=== PATIENT | male | born 1975 | race Caucasian/White ===

== ENCOUNTER 2020-05-08 10:58 | Inpatient (IN) | payer MEDICAID, OTHER ==
[~2020-05-08] VITALS: Ht 190.5 cm; Wt 211.9 kg
[2020-05-08 12:22] LABS: Urine Bacteria NONE SEEN /hpf (None Seen); Urine Blood Negative /uL (Negative); Urine Specific Gravity 1.013 (1.001-1.035); Urine WBC 2 /hpf (0 - 3)
[2020-05-08 12:35] LABS: Basophils # (auto) 0.1 10 ^3/uL (0-0.2); Basophils % (auto) 0.6 % (0.0-2.0); Eosinophils # (auto) 0.2 10 ^3/uL (0-0.8); Eosinophils % (auto) 1.5 % (0.0-7.0); Hemoglobin 17.1 g/dL (13.5-17.5); Lymphocytes % (auto) 9.4 % (10.0-50.0); Mean Corpuscular Hemoglobin 32.3 pg (28.0-32.0); Mean Corpuscular Hgb Conc. 34.1 g/dL (32.0-36.0); Mean Corpuscular Volume 94.7 fL (80.0-100.0); Monocytes # (auto) 0.8 10 ^3/uL (0-1.3); Monocytes % (auto) 8.2 % (0.0-12.0); Neutrophils # (auto) 8.3 10 ^3/uL (1.6-8.6); Neutrophils % (auto) 80.3 % (37.0-80.0); Nucleated Red Blood Cells % 0.1 %; Platelet Count (auto) 241 10^3/uL (140-450); Red Blood Cells 5.28 10^6/uL (4.5-5.90); Red Cell Distribution Width 13.4 % (11.8-14.3); White Blood Cell 10.3 10^3/uL (4.4-10.8)
[2020-05-08 12:49] LABS: Albumin 3.4 g/dL (3.4-5.0); Calcium 8.6 mg/dL (8.5-10.1); Magnesium 2.1 mg/dL (1.6-2.6); Potassium 3.9 mmol/L (3.5-5.1)
[2020-05-08 12:51] LABS: BUN/Creatinine Ratio 10.2
[2020-05-08 12:55] LABS: Bilirubin, Total 0.6 mg/dL (0.2-1.0); Total Protein 7.4 g/dL (6.4-8.2)
[2020-05-08 12:57] LABS: INR 1.04 (0.9-1.15); Partial Thromboplastin Time 28.2 sec (23.0-31.2)
[2020-05-08] MEDS ORDERED: NITROGLYCERIN 0.4 MG SL TAB SL PRN ×3 (14:00→15:30)
[2020-05-08] MEDS ORDERED: MORPHINE SULF INJ 2 MG/ML SYRINGE 1ML IV PRN ×3 (14:00→15:30)
[2020-05-08] MEDS ORDERED: ENOXAPARIN SOD 40 MG/0.4 ML SYRINGE SC ONE (14:30)
[2020-05-08] MEDS ORDERED: FUROSEMIDE 100 MG/10ML VIAL IV ONE (14:30)
[2020-05-08] MEDS ORDERED: CHOL20009 PO (15:19)
[2020-05-08] MEDS ORDERED: APPL188C PO (15:19)
[2020-05-08] MEDS ORDERED: MULT1TAB64 PO (15:19)
[2020-05-08] MEDS ORDERED: ATORVASTATIN 20 MG TAB PO ONE (15:30)
[2020-05-08] MEDS ORDERED: hydrALAZINE HCL 20 MG/ML VL IV PRN (15:30)
[2020-05-08] MEDS ORDERED: CLINDAMYCIN 600MG IV 50 ML IV ONE (15:30)
[2020-05-08] MEDS ORDERED: METOPROLOL SUCCINATE XL 50 MG TAB PO ONE (15:30)
[2020-05-08] MEDS ORDERED: cefTRIAXone 1GM/50ML D5W 50 ML IV ONE (17:00)
[2020-05-08] MEDS: FUROSEMIDE 40 MG/4 ML VIAL IV SCH (20:22)
[2020-05-08] MEDS: CLINDAMYCIN 600MG IV 50 ML IV SCH (21:46)
--- NOTE | 2020-05-08 22:58 | NUR ---
Telemetry admit from ER ROBTOMASALUIGI admitted to Telemetry unit after SBAR received. Patient oriented to Will reilly RN, unit, room 239, bed A, and unit policies regarding patient care and visiting hours. Patient now on continuous telemetry monitoring, tele box #[id number] and telemetry reading on arrival to unit is SR 88. Patient placed on bedside oxygen, weighed by bedscale and encouraged to call if they need something. All questions and concerns addressed, patient verbalized understanding.
[2020-05-08 23:23] VITALS: BP 130/68
[2020-05-09] MEDS ORDERED: INFLUENZA QUAD 2020-2021 0.5 ML SYRG IM ONE (00:15)
[2020-05-09 05:00] VITALS: BP 140/74
[2020-05-09] MEDS: CLINDAMYCIN 600MG IV 50 ML IV SCH (06:19)
[2020-05-09] MEDS: FUROSEMIDE 40 MG/4 ML VIAL IV SCH ×2 (06:19→17:52)
--- NOTE | 2020-05-09 07:53 | NUR ---
REPORT GIVEN TO KAMILLA Almanza PATIENT TAKEN TO ROOM 297B
[2020-05-09 08:00] VITALS: BP 153/57
--- NOTE | 2020-05-09 08:00 | NUR ---
Assumed care of the patient after reports received from Stephanie TORRES, patient is COVID19 negative results. Patient transferred to room via wheelchair. Patient is alert and oriented x4, no complaints of chest pain at this time, noted with some shortness of breath on room air. O2 inhalation at 2lpm/nasal cannula administered. VS taken and recorded. Oriented to floor policy. Safety/fall precaution implemented. Will continue to monitor.
[2020-05-09 09:00] VITALS: BP 154/75
[2020-05-09] MEDS ORDERED: ASPirin-EC 81 mg tab PO SCH (10:00)
[2020-05-09] MEDS: ASPirin 81 mg TAB PO SCH (10:22)
[2020-05-09] MEDS: LISINOPRIL 10 MG TAB PO SCH (10:23)
[2020-05-09] MEDS: METOPROLOL SUCCINATE XL 50 MG TAB PO SCH (10:23)
[2020-05-09] MEDS: CEFTRIAXONE SODIUM 2 GM in D5W 5% 50 ML IV SCH (10:24)
--- NOTE | 2020-05-09 11:20 | NUR ---
Dr. Troncoso at bedside, patient is advised. Patient has no complaints of SOB, fever at this time. Weaned off O2, will check O2 sat on room air after 30minutes. Addendum: 05/09/20 at 1316 by Zechariah Boo RN no complaints of chest pain at this time. Cardiology consult was ordered.
[2020-05-09 11:35] LABS: Calcium 8.6 mg/dL (8.5-10.1); Magnesium 2.4 mg/dL (1.6-2.6); Potassium 3.6 mmol/L (3.5-5.1)
[2020-05-09 11:40] LABS: BUN/Creatinine Ratio 9.7
--- NOTE | 2020-05-09 12:00 | NUR ---
Patient's O2 sat on room air 86%-92% on and off. O2 at 1lpm/nasal cannula administered again. Will continue to monitor.
[2020-05-09 13:00] VITALS: BP 128/72
[2020-05-09] MEDS ORDERED: OPTISON 3ml Vial for INJ IV ONE (16:10)
--- NOTE | 2020-05-09 18:50 | NUR ---
Prefers flu shot to be administered prior to discharge.
--- NOTE | 2020-05-09 19:50 | NUR ---
Opening Shift Note Assumed care of patient. Awake, alert and oriented x4. No S/S of distress/SOB or pain. Pt is on 2L NC with even and unlabored respirations. Instructed on POC and to call for assist PRN. Bed locked, in lowest position, call light within reach, side rails up x2. Will continue to monitor for changes Q1hr and PRN.
[2020-05-09 22:00] VITALS: BP 134/51
[2020-05-09] MEDS: ATORVASTATIN 20 MG TAB PO SCH (22:05)
[2020-05-09 23:34] LABS: Amphetamine Screen, Urine NEGATIVE (NEGATIVE); Barbiturate Scree,Urine NEGATIVE (NEGATIVE); Benzodiazephine Screen, Urine NEGATIVE (NEGATIVE); Cannabinoid Screen, Urine NEGATIVE (NEGATIVE); Cocaine Screen, Urine NEGATIVE (NEGATIVE); Opiate Scree,Urine NEGATIVE (NEGATIVE); Phencyclidine Screen, Urine NEGATIVE (NEGATIVE)
--- NOTE | 2020-05-10 04:36 | NUR ---
Pts HR drops into the mid 30's for periods of time when sleeping Assessed pt and there are no complaints of SOB or chest pain. No S/S of distress. Pts HR goes back into the 70's after being woken up. Pt is on 2L NC with O2 sat at 94%. Will continue to monitor.
[2020-05-10 05:00] VITALS: BP 126/81
--- NOTE | 2020-05-10 05:57 | NUR ---
Left message for MD Abreu about pts HR technical operations manager made this RN aware of a short pause at 0320 when HR was 36. Will continue to monitor
[2020-05-10] MEDS: FUROSEMIDE 40 MG/4 ML VIAL IV SCH ×2 (06:22→18:03)
--- NOTE | 2020-05-10 07:21 | NUR ---
Closing Shift Note No S/S of distress, SOB or pain at this time. Care endorsed to Daxa TORRES
[2020-05-10 07:24] LABS: Calcium 8.5 mg/dL (8.5-10.1); Magnesium 2.3 mg/dL (1.6-2.6); Potassium 3.6 mmol/L (3.5-5.1)
[2020-05-10 07:26] LABS: BUN/Creatinine Ratio 11.9
[2020-05-10 09:00] VITALS: BP 149/82
[2020-05-10] MEDS: ASPirin 81 mg TAB PO SCH (09:33)
[2020-05-10] MEDS: CEFTRIAXONE SODIUM 2 GM in D5W 5% 50 ML IV SCH (09:35)
[2020-05-10] MEDS: LISINOPRIL 10 MG TAB PO SCH (09:44)
--- NOTE | 2020-05-10 09:57 | NUR ---
entered room pt a/o x's 4. denies any pain. sao2 95% 2L/nc, took oxygen off, sao2 decreased 85% ra, breathing labored, hr 95. oxygen reapplied et oxygen quickly increased 93% 2L/nc breathing non-labored, bll diminished/wheezes. rle pitting edema, lle non-pitting. no distress noted at this time. resting in bed. reinforced using urinal due to iv lasix given, pt stated he was unable because of difficulty. educated the importance, pt verbalized understanding, but still has not complied. offers no other needs. denies any cp.
[2020-05-10] MEDS ORDERED: ENOXAPARIN SOD 40 MG/0.4 ML SYRINGE SC SCH (10:00)
[2020-05-10] MEDS: METOPROLOL SUCCINATE XL 50 MG TAB PO SCH (10:44)
[2020-05-10 13:00] VITALS: BP 142/83
--- NOTE | 2020-05-10 15:05 | NUR ---
Nutrition Assessment/Consult Notes Please refer to link for full assessment notes. Est Energy needs: [address] kcals (25-30 kcal/kgIBW of 89kg) Est Protein needs: 89-134 gms/day (1.0-1.5 gm/kgIBW of 89kg) Will continue to monitor and reassess prn Addendum: 05/10/20 at [address] Amended: Links added.
[2020-05-10] MEDS ORDERED: DEXTROSE (50%) 50ML SYRG IV PRN (16:45)
[2020-05-10 17:00] VITALS: BP 134/78
[2020-05-10] MEDS: InsuLIN REG 1unit/0.01ml Soln (100units/ml) SC SCH ×2 (17:00→22:00)
[2020-05-10] MEDS: ACCU-CHEK COMFORT CURVE STRIP VI SCH ×2 (17:00→22:13)
[2020-05-10] MEDS ORDERED: RIVAROXABAN 20 MG TAB PO SCH (18:00)
--- NOTE | 2020-05-10 19:46 | NUR ---
hr decreased to 40's, entered room pt sleeping awoke easily, hr quickly increased 70-80's. pt asymptomatic. notified dr. Abreu, no interventions at time. bg started ac/Hs bG 125, no insulin needed. unable to wean off oxygen, sob with activity. eating et drinking well. offers no other needs.
[2020-05-10] MEDS: ATORVASTATIN 20 MG TAB PO SCH (22:13)
[2020-05-11 05:00] VITALS: BP 154/72
[2020-05-11] MEDS: FUROSEMIDE 40 MG/4 ML VIAL IV SCH (07:04)
[2020-05-11] MEDS: ACCU-CHEK COMFORT CURVE STRIP VI SCH ×2 (07:05→11:44)
[2020-05-11] MEDS: InsuLIN REG 1unit/0.01ml Soln (100units/ml) SC SCH ×2 (07:05→11:45)
--- NOTE | 2020-05-11 07:30 | NUR ---
Opening Shift Note Assumed care of patient, awake and alert. No S/S of distress/SOB or pain. Patient is on 2L NC. Instructed on POC and to call for assist PRN, will continue to monitor for changes Q1hr and PRN. Bed is locked and in lowest position. Call light within reach.
[2020-05-11 09:00] VITALS: BP 140/76
[2020-05-11] MEDS: ASPirin 81 mg TAB PO SCH (10:19)
[2020-05-11] MEDS: METOPROLOL SUCCINATE XL 50 MG TAB PO SCH (10:19)
[2020-05-11] MEDS: LISINOPRIL 10 MG TAB PO SCH (10:20)
[2020-05-11] MEDS: CEFTRIAXONE SODIUM 2 GM in D5W 5% 50 ML IV SCH (10:40)
[2020-05-11 13:00] VITALS: BP 117/71
[2020-05-11 14:17] VITALS: BP 140/76
--- NOTE | 2020-05-11 15:55 | NUR ---
DISCHARGE PATIENT GIVEN DISCHARGE PAPERWORK, ALL QUESTIONS AND CONCERNS ANSWERED. PATIENT PRESCRIPTION FILLED BY [facility] AND FILLED PATIENT HAS MEDICATION AT BEDSIDE. PATIENT GIVEN DIABETIC EDUCATION ON USE OF GLUCOMETER, MEDICATION AND DIET. PATIENT GIVEN DIABETIC PACKETS FOR PATIENT EDUCATION. PATIENT HAS APPOINTMENT WITH PRIMARY CARE PROVIDER. PATIENT WILL CALL Wednesday TO SET UP APPOINTMENT WITH DR. Trinidad IVY FOR CARDIOLOGY FOLLOW UP UNABLE TO SET UP APPOINTMENT DUE TO WEEKEND. PATIENT HAS DR. Trinidad IVY INFORMATION. PATIENT TELEMONITOR REMOVED AND SENT TO ICU HEART LAB. PATIENT AWAITING HEARING STENOGRAPHER FROM FAMILY. IV removal IV DC'd with clean sterile technique, catheter fully intact. Pressure dressing applied to site. Patient tolerated well.
[2020-05-11 16:17] VITALS: BP 128/77
== END 2020-05-11 15:34 | disposition home or self-care (01) | DRG 194 ==
LOC: EDBD 10:58 → ER 10:58 → TELE 10:59 → TELE-EAST 21:47 → TELE-WESTW 05-09 07:57
PROVIDERS: ADMIT Specialist; ATTEND Internal Medicine
DX: I11.0 Hypertensive heart disease with heart failure (principal); I21.A1 Myocardial infarction type 2; L03.116 Cellulitis of left lower limb; L03.115 Cellulitis of right lower limb; E66.01 Morbid (severe) obesity due to excess calories; I50.21 Acute systolic (congestive) heart failure; E78.5 Hyperlipidemia, unspecified; Z68.43 Body mass index [BMI] 50.0-59.9, adult; E11.9 Type 2 diabetes mellitus without complications; G47.33 Obstructive sleep apnea (adult) (pediatric); I42.9 Cardiomyopathy, unspecified; Z20.828 Contact with and (suspected) exposure to other viral communicable diseases; Z79.01 Long term (current) use of anticoagulants; Z79.899 Other long term (current) drug therapy; Z80.8 Family history of malignant neoplasm of other organs or systems; Z82.49 Family history of ischemic heart disease and other diseases of the circulatory system; Z83.3 Family history of diabetes mellitus; Z83.41 Family history of multiple endocrine neoplasia [MEN] syndrome; Z91.19 Patient's noncompliance with other medical treatment and regimen
CPT/HCPCS: 36415; 71045; 80048; 80053; 80061; 80307; 81001; 82962; 83036; 83605; 83735; 83880; 84443; 84484; 85025; 85379; 85610; 85730; 87040; 87086; 87426; 93005; 93306; 96365; 96367; 96372; 96375; G0378; J0696; J1815; J3490; J7060; Q9956